=== PATIENT | female | born 1980 | race Caucasian/White ===

== ENCOUNTER 2016-11-29 07:11 | Emergency (ER) | payer SELFPAY ==
[2016-11-29 07:32] VITALS: BP 117/86
--- NOTE | 2016-11-29 07:57 | UC ---
Lower Extremity/Ankle HPI - HPI Summary HPI Summary: PT WAS WALKING ON FLAT GROUND IN HER APARTMENT WHEN HER LEFT ANKLE GAVE OUT AND ROLLED. (INVERSION INJURY). PT REPORTS A H/O A WEAK LEFT ANKLE AFTER BREAKING IT YEARS AGO AND SHE STATES IT ROLLS PERIODICALLY BUT USUALLY GETS BETTER AFTER A COUPLE OF DAYS. THIS TIME THE PAIN AND SWELLING HAVE PERSISTED AND SHE FEELS IT IS GETTING WORSE. - History of Current Complaint Chief Complaint: UCLowerExtremity Stated Complaint: ANKLE INJURY Time Seen by Provider: 11/29/16 07:48 Hx Obtained From: Patient Hx Last Menstrual Period: 11/29/16 Onset/Duration: Sudden Onset, Lasting Weeks, Still Present Severity Initially: Moderate Severity Currently: Moderate Pain Intensity: 4 Pain Scale Used: 0-10 Numeric Aggravating Factor(s): Standing, Ambulation Alleviating Factor(s): Rest Able to Bear Weight: Yes - WITH PAIN - Allergies/Home Medications Allergies/Adverse Reactions: Allergies Allergy/AdvReac Type Severity Reaction Status Date / Time No Known Allergies Allergy Verified 11/29/16 07:27 PMH/Surg Hx/FS Hx/Imm Hx Previously Healthy: Yes - Surgical History Surgical History: Yes Surgery Procedure, Year, and Place: tubal ligation - Family History Known Family History: Negative: Hypertension - Social History Alcohol Use: None Substance Use Type: None Smoking Status (MU): Heavy Every Day Tobacco Smoker Amount Used/How Often: 1 PPD Review of Systems Constitutional: Negative Skin: Negative Respiratory: Negative Cardiovascular: Negative Gastrointestinal: Negative Musculoskeletal: Arthralgia, Decreased ROM, Edema All Other Systems Reviewed And Are Negative: Yes Physical Exam Triage Information Reviewed: Yes Appearance: Well-Appearing, No Pain Distress, Well-Nourished Vital Signs: Initial Vital Signs Temp 98 F 11/29/16 07:27 Pulse 96 11/29/16 07:27 Resp 16 11/29/16 07:27 BP 117/86 11/29/16 07:27 Pulse Ox 95 11/29/16 07:27 Vital Signs Reviewed: Yes Eyes: Positive: Conjunctiva Clear ENT: Positive: Hearing grossly normal Neck: Positive: Supple Respiratory: Positive: No respiratory distress, No accessory muscle use Cardiovascular: Positive: Pulses Normal Abdomen Description: Positive: Soft Musculoskeletal: Positive: ROM Limited @ - LEFT ANKLE, Edema @ - LEFT ANKLE - LATERALLY, Other: - TTP LEFT ANKLE LATERALLY. ACHILLES INTACT. Neurological: Positive: Alert Psychological: Positive: Age Appropriate Behavior Skin: Negative: rashes Diagnostics - Radiology LEFT ANKLE/FOOT XRAYS Xray Interpretation: No Acute Changes Radiology Interpretation Completed By: Radiologist Lower Extremity Course/Dx - Differential Dx/Diagnosis Provider Diagnoses: LEFT ANKLE SPRAIN Discharge - Discharge Plan Condition: Stable Disposition: HOME Patient Education Materials: Ankle Sprain (ED) Referrals: Hay Mae MD [Medical Doctor] - 1 Week Additional Instructions: NOTHING ACUTE SEEN ON XRAY TODAY. WEAR THE CAMBOOT AND/OR TOMÁS WRAPS NEEDED FOR COMFORT. REST, ELEVATE. FOLLOW-UP WITH ORTHO IF NOT IMPROVING OVER THE NEXT 1-2 WEEKS.
--- NOTE | 2016-11-29 08:30 | RAD ---
HISTORY: Subcutaneous trauma, lateral ankle and foot pain, left-sided COMPARISONS: None VIEWS: 6, Frontal, lateral, and oblique views of the left ankle and of the left foot FINDINGS: BONE DENSITY: Normal. BONES: There is no acute displaced fracture. There is well corticated bone fragment along the distal aspect of the medial tibia consistent with remote avulsion injury. JOINTS: There is no arthropathy. ALIGNMENT: There is no dislocation. SOFT TISSUES: Unremarkable. OTHER FINDINGS: None. IMPRESSION: FINDINGS SUGGESTIVE OF REMOTE AVULSION INJURY OF THE MEDIAL MALLEOLUS. NO ACUTE OSSEOUS INJURY TO THE LEFT ANKLE OR LEFT FOOT. IF SYMPTOMS PERSIST, RECOMMEND REPEAT IMAGING.
== END 2016-11-29 08:50 | disposition home or self-care (01) ==
LOC: UCEAST 07:11
DX: S93.402A Sprain of unspecified ligament of left ankle, initial encounter (principal); F17.210 Nicotine dependence, cigarettes, uncomplicated; Z98.51 Tubal ligation status; X50.9XXA Other and unspecified overexertion or strenuous movements or postures, initial encounter; Y93.01 Activity, walking, marching and hiking; Y92.9 Unspecified place or not applicable
CPT/HCPCS: 99213; G0463

== ENCOUNTER 2017-01-17 19:22 | Emergency (ER) | payer MEDICAID ==
[2017-01-17 19:33] VITALS: BP 122/87
--- NOTE | 2017-01-17 20:00 | UC ---
Respiratory Complaint HPI - HPI Summary HPI Summary: Pt c/o cough, SOB, generalized malaise X 3 days. Pt states cough is worse when she lies down. Denies history of PE or clotting disorder - History of Current Complaint Chief Complaint: UCRespiratory Stated Complaint: COUGH Time Seen by Provider: 01/17/17 19:40 Hx Obtained From: Patient Hx Last Menstrual Period: 12/22/16 ?: No Onset/Duration: Gradual Onset, Lasting Days, Still Present, Worse Since - onset Timing: Constant Severity Initially: Mild Severity Currently: Mild Character: Cough: Nonproductive Aggravating Factors: Deep Breaths, Recumbent Position Alleviating Factors: Nothing Associated Signs And Symptoms: Positive: Wheezing, URI, Nasal Congestion - Risk Factors Pulmonary Embolism Risk Factors: Smoking Cardiac Risk Factors: Smoking Tuberculosis Risk Factors: Smoking - Allergies/Home Medications Allergies/Adverse Reactions: Allergies Allergy/AdvReac Type Severity Reaction Status Date / Time No Known Allergies Allergy Verified 01/17/17 19:33 PMH/Surg Hx/FS Hx/Imm Hx Previously Healthy: Yes - Surgical History Surgical History: None Surgery Procedure, Year, and Place: tubal ligation - Family History Known Family History: Positive: Cardiac Disease Negative: Hypertension - Social History Lives: With Family Alcohol Use: None Substance Use Type: None Smoking Status (MU): Heavy Every Day Tobacco Smoker Amount Used/How Often: 1 PPD Have You Smoked in the Last Year: Yes Household Exposure Type: Cigarettes - Immunization History Vaccination Up to Date: No Review of Systems Constitutional: Fatigue Skin: Negative Eyes: Negative ENT: Other - nasal congestion Respiratory: Shortness Of Breath, Cough Cardiovascular: Negative Gastrointestinal: Negative Genitourinary: Negative Motor: Negative Neurovascular: Negative Musculoskeletal: Negative Neurological: Negative Psychological: Negative Is Patient Immunocompromised?: No All Other Systems Reviewed And Are Negative: Yes Physical Exam Triage Information Reviewed: Yes Appearance: Ill-Appearing Vital Signs: Initial Vital Signs Temp 96.7 F 01/17/17 19:30 Pulse 99 01/17/17 19:30 Resp 18 01/17/17 19:30 BP 122/87 01/17/17 19:30 Pulse Ox 99 01/17/17 19:30 Vital Signs Reviewed: Yes Eye Exam: Normal ENT Exam: Other ENT: Positive: Nasal congestion Dental Exam: Normal Neck exam: Normal Respiratory Exam: Other Respiratory: Positive: Wheezing Cardiovascular Exam: Normal Musculoskeletal Exam: Normal Neurological Exam: Normal Psychological Exam: Normal Skin Exam: Normal UC Diagnostic Evaluation - Laboratory O2 Sat by Pulse Oximetry: 99 Respiratory Course/Dx - Differential Dx/Diagnosis Differential Diagnosis/HQI/PQRI: Bronchitis, Other - viral syndrome Provider Diagnoses: bronchitis Discharge - Discharge Plan Condition: Stable Disposition: HOME Prescriptions: Albuterol HFA INHALER* [Ventolin HFA Inhaler*] 1 puff INH Q6H PRN #1 mdi PRN Reason: Sob/Wheezing Amoxicillin PO (*) [Amoxicillin 875 MG (*)] 875 mg PO Q12H #14 tab Benzonatate CAP* [Tessalon 100 MG CAP*] 100 mg PO Q8H PRN #21 cap PRN Reason: Cough Patient Education Materials: Acute Bronchitis (ED) Referrals: [facility] [place] [facility] [Outside] No Primary Care Phys,NOPCP [Primary Care Provider] -
== END 2017-01-17 20:12 | disposition home or self-care (01) ==
LOC: UCCORT 19:22
DX: J40 Bronchitis, not specified as acute or chronic (principal); F17.210 Nicotine dependence, cigarettes, uncomplicated
CPT/HCPCS: 99212; G0463

== ENCOUNTER 2017-01-24 12:52 | Emergency (ER) | payer MEDICAID ==
[2017-01-24 13:14] VITALS: BP 126/85
--- NOTE | 2017-01-24 14:08 | UC ---
Respiratory Complaint HPI - HPI Summary HPI Summary: Cough and congestion for about 9 days. She is currently on amoxicillin and inhaler. She is not feeling any better and continues to have cough and congestion. She has frontal headache. No fever. Cough is somewhat productive. - History of Current Complaint Chief Complaint: UCRespiratory Stated Complaint: UPPER RESPITORY Time Seen by Provider: 01/24/17 13:55 Hx Obtained From: Patient Hx Last Menstrual Period: 01/22/17 Onset/Duration: Gradual Onset, Lasting Days Timing: Constant Severity Initially: Moderate Severity Currently: Moderate Character: Cough: Nonproductive Aggravating Factors: Deep Breaths, Recumbent Position Alleviating Factors: Upright Position Associated Signs And Symptoms: Positive: URI, Nasal Congestion. Negative: Dyspnea, Fever, Chills, Pleuritic Chest Pain, Hemoptysis, Calf Pain, Calf Swelling, Edema - Allergies/Home Medications Allergies/Adverse Reactions: Allergies Allergy/AdvReac Type Severity Reaction Status Date / Time Bee Venom Allergy Hives/Diff. Verified 01/24/17 13:14 Breathing/I tching PMH/Surg Hx/FS Hx/Imm Hx Previously Healthy: No - smoker. - Surgical History Surgical History: Yes Surgery Procedure, Year, and Place: tubal ligation - Family History Known Family History: Positive: Cardiac Disease Negative: Hypertension - Social History Alcohol Use: Occasionally Substance Use Type: None Smoking Status (MU): Heavy Every Day Tobacco Smoker Amount Used/How Often: 1 PPD Have You Smoked in the Last Year: Yes Household Exposure Type: Cigarettes - Immunization History Vaccination Up to Date: No Review of Systems ENT: Sinus Congestion Respiratory: Cough All Other Systems Reviewed And Are Negative: Yes Physical Exam Triage Information Reviewed: Yes Appearance: Well-Appearing, No Pain Distress, Well-Nourished Vital Signs: Initial Vital Signs Temp 98.6 F 01/24/17 13:10 Pulse 82 01/24/17 13:10 Resp 16 01/24/17 13:10 BP 126/85 01/24/17 13:10 Pulse Ox 100 01/24/17 13:10 Vital Signs Reviewed: Yes Eyes: Positive: Conjunctiva Clear ENT: Positive: Pharynx normal, Nasal congestion, TMs normal, Sinus tenderness - Frontal sinus tenderness.. Negative: Pharyngeal erythema, Tonsillar swelling, Tonsillar exudate, Trismus, Muffled voice, Hoarse voice Neck: Positive: Supple, Nontender, No Lymphadenopathy Respiratory: Positive: Normal breath sounds, No respiratory distress, No accessory muscle use. Negative: Respiratory distress, Decreased breath sounds, Crackles, Rhonchi, Stridor Cardiovascular: Positive: RRR, No Murmur, Pulses Normal Abdomen Description: Positive: Nontender. Negative: Distended, Guarding Musculoskeletal Exam: Normal Musculoskeletal: Positive: Strength Intact, ROM Intact, No Edema Neurological: Positive: Alert, Muscle Tone Normal. Negative: Fatigued Psychological: Positive: Normal Response To Family Skin: Negative: rashes UC Diagnostic Evaluation - Laboratory O2 Sat by Pulse Oximetry: 100 Respiratory Course/Dx - Course Course Of Treatment: she will continue her amoxicillin for the frontal sinus infection/tenderness. Her cough is benign without any change in vitals or clinical signs of pnuemonia. - Differential Dx/Diagnosis Provider Diagnoses: sinusitis. uri Discharge - Discharge Plan Condition: Good Disposition: HOME Patient Education Materials: Upper Respiratory Infection (ED) Referrals: Melissa Morton PA [Primary Care Provider] - If Needed Additional Instructions: Add mucinex decongestant and also nasal irrigation to your regimen.
== END 2017-01-24 14:30 | disposition home or self-care (01) ==
LOC: UCCORT 12:52
DX: J32.9 Chronic sinusitis, unspecified (principal); J06.9 Acute upper respiratory infection, unspecified; Z72.0 Tobacco use; Z72.89 Other problems related to lifestyle
CPT/HCPCS: 99211; G0463

== ENCOUNTER 2017-08-05 19:33 | Emergency (ER) | payer MEDICAID ==
[2017-08-05 19:48] VITALS: BP 133/88
[2017-08-05] MEDS ORDERED: Diazepam INJ (NF) 5 MG/ML 10 ML VIAL (50 MG TOTAL) IM ONE (19:55)
--- NOTE | 2017-08-05 19:58 | ED ---
Back Pain - HPI Summary HPI Summary: Complains of sudden onset lower back pain while at work. Back pain described as constant, sharp, right side worse than left. History of same pain once before. 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 Denies trauma, incontinence, urinary retention, radiation into bilateral lower extremities, loss of sensation in bilateral lower extremities. Patient ambulatory, with pain. Medical history is none. Positive smoker. Occasional etoh, denies IV drug use. - History of Current Complaint Chief Complaint: UCBackPain Stated Complaint: BACK SPASMS Time Seen by Provider: 08/05/17 19:37 Hx Last Menstrual Period: july Onset/Duration: Sudden Onset Onset/Duration: Started Minutes Ago Timing: Constant Back Pain Location: Is Discrete @ - lowe back bilat Severity Initially: Severe Severity Currently: Severe Pain Intensity: 9 Pain Scale Used: 0-10 Numeric Character: Sharp Aggravating Symptom(s): Movement, Bending Alleviating Symptom(s): Position Associated Signs And Symptoms: Positive: Negative - Allergies/Home Medications Allergies/Adverse Reactions: Allergies Allergy/AdvReac Type Severity Reaction Status Date / Time Penicillins AdvReac yeast Verified 08/05/17 19:50 infection bee stings Allergy Difficulty Uncoded 08/05/17 19:50 Breathing, hives Home Medications: Home Medications Albuterol HFA INHALER* [Ventolin HFA Inhaler*] 2 puff INH Q6H PRN 08/05/17 [ History Confirmed 08/05/17] PMH/Surg Hx/FS Hx/Imm Hx Endocrine/Hematology History: Denies: Hx Anticoagulant Therapy History: Denies: Hx Dialysis EENT History: Reports: Hx Deafness Neurological History: Denies: Hx CVA - Surgical History Surgery Procedure, Year, and Place: tubal ligation Infectious Disease History: No Infectious Disease History: Denies: History Other Infectious Disease, Traveled Outside the [place] in Last 30 Days - Family History Known Family History: Positive: Cardiac Disease Negative: Hypertension - Social History Alcohol Use: Occasionally Substance Use Type: Reports: None Smoking Status (MU): Heavy Every Day Tobacco Smoker Amount Used/How Often: 1 PPD Have You Smoked in the Last Year: Yes Review of Systems Constitutional: Negative Eyes: Negative Positive: Epistaxis Cardiovascular: Negative Respiratory: Negative Gastrointestinal: Negative Genitourinary: Negative Positive: Other Skin: Negative Neurological: Negative Psychological: Normal Positive: Anxious All Other Systems Reviewed And Are Negative: Yes Physical Exam - Summary Physical Exam Summary: Patient ambulatory. PMS intact on bilateral lower extremities. Low back pain with flexion of bilateral hips and knees. No masses, erythema, deformity, ecchymosis, extra warmth noted to lower back. Tenderness to palpation along lumbar paraspinal muscles, right more than left. Triage Information Reviewed: Yes Vital Signs On Initial Exam: Initial Vitals Temp Pulse Resp BP Pulse Ox 98.2 F 120 20 133/88 100 08/05/17 19:41 08/05/17 19:41 08/05/17 19:41 08/05/17 19:41 08/05/17 19:41 Vital Signs Reviewed: Yes Appearance: Positive: Well-Appearing Skin: Positive: Warm Head/Face: Positive: Normal Head/Face Inspection Eyes: Positive: EOMI, Conjunctiva Clear Neck: Positive: Supple Respiratory/Lung Sounds: Positive: Clear to Auscultation Cardiovascular: Positive: Normal Abdomen Description: Positive: Nontender Musculoskeletal: Positive: Normal Neurological: Positive: Normal Psychiatric: Positive: Normal AVPU Assessment: Alert - [place] Coma Scale Best Eye Response: 4 - Spontaneous Best Motor Response: 6 - Obeys Commands Best Verbal Response: 5 - Oriented Coma Scale Total: 15 Diagnostics - Vital Signs Vital Signs Temp Pulse Resp BP Pulse Ox 08/05/17 19:41 98.2 F 120 20 133/88 100 - Laboratory Lab Statement: Any lab studies that have been ordered have been reviewed, and results considered in the medical decision making process. Re-Evaluation - Re-Evaluation 1 Re-Evaluation Time: 20:48 Comment: pt back pain completely resolved with valium. Back Pain Course/Dx - Course Course Of Treatment: Complains of sudden onset lower back pain while at work. Back pain described as constant, sharp, right side worse than left. History of same pain once before years ago. 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 Denies trauma, incontinence, urinary retention, radiation into bilateral lower extremities, loss of sensation in bilateral lower extremities. Patient ambulatory with pain. Medical history is none. Denies IV drug use. Patient ambulatory. PMS intact on bilateral lower extremities. Low back pain with flexion of bilateral hips and knees. No masses, erythema, deformity, ecchymosis , extra warmth noted to lower back. Tenderness to palpation along lumbar paraspinal muscles, right more than left. VS wnl. Pt pain completely resolved with valium. Rx for same - Diagnoses Provider Diagnoses: Muscle spasm Discharge - Sign-Out/Discharge Documenting (check all that apply): Discharge/Admit/Transfer - Discharge Plan Condition: Stable Disposition: HOME Prescriptions: Diazepam TAB(*) [Valium TAB(*)] 5 mg PO TID PRN #5 tab MDD 3 tabs PRN Reason: Pain Patient Education Materials: Muscle Spasm (ED) Forms: *Work Release Referrals: Melissa Morton PA [Primary Care Provider] - Additional Instructions: Follow-up with primary care. Return to the ED for any new or worsening symptoms - Billing Disposition and Condition Condition: STABLE Disposition: Home
[2017-08-05] MEDS ORDERED: Ketorolac INJ* 30 MG/ML 1 ML VIAL IM ONE (20:40)
== END 2017-08-05 21:03 | disposition home or self-care (01) ==
LOC: UCCORT 19:33
DX: M62.830 Muscle spasm of back (principal); Z88.0 Allergy status to penicillin; F17.210 Nicotine dependence, cigarettes, uncomplicated
CPT/HCPCS: 96372; 99212; G0463; J1885; J3360

== ENCOUNTER 2018-01-14 16:36 | Emergency (ER) | payer SELFPAY ==
[2018-01-14 16:45] VITALS: BP 130/86
--- NOTE | 2018-01-14 16:46 | UC ---
Skin Complaint HPI - HPI Summary HPI Summary: 37 female presents with lump under left axilla for 2 weeks. She tells me that she has had this multiple times in the past and her boyfriend will always stick a needle in it and drain some pus and it goes away. This time pt was unable to express any pus and is becoming more tender. Denies fever or chills. No hx of MRSA that she knows of. - History of Current Complaint Chief Complaint: UCSkin Time Seen by Provider: 01/14/18 16:46 Stated Complaint: CYST OR BOIL UNDERNEATH ARM Hx Obtained From: Patient Hx Last Menstrual Period: 01/14/18 Onset/Duration: Gradual Onset Onset Severity: Moderate Current Severity: Severe Pain Intensity: 9 Pain Scale Used: 0-10 Numeric - Allergy/Home Medications Allergies/Adverse Reactions: Allergies Allergy/AdvReac Type Severity Reaction Status Date / Time Penicillins AdvReac yeast Verified 01/14/18 16:45 infection bee stings Allergy Difficulty Uncoded 01/14/18 16:45 Breathing, hives PMH/Surg Hx/FS Hx/Imm Hx Respiratory History: Asthma Other History Of: Negative For: Anticoagulant Therapy - Surgical History Surgical History: Yes Surgery Procedure, Year, and Place: tubal ligation - Family History Known Family History: Positive: Cardiac Disease Negative: Hypertension - Social History Occupation: Employed Full-time Lives: With Family Alcohol Use: Occasionally Substance Use Type: None Smoking Status (MU): Heavy Every Day Tobacco Smoker Amount Used/How Often: 1 PPD Have You Smoked in the Last Year: Yes Household Exposure Type: Cigarettes - Immunization History Vaccination Up to Date: No Review of Systems All Other Systems Reviewed And Are Negative: Yes Constitutional: Positive: Negative Skin: Positive: Other - Left axilla abscess Respiratory: Positive: Negative Cardiovascular: Positive: Negative Neurovascular: Positive: Negative Neurological: Positive: Negative Psychological: Positive: Negative Physical Exam - Summary Physical Exam Summary: GENERAL: NAD. WDWN. No pain distress. SKIN: LEFT AXILLA: 1.0cm abscess TTP. Mild induration and edema. NECK: Supple. Nontender. No lymphadenopathy. CHEST: No accessory muscle use. Breathing comfortably and in no distress. CV: Pulses intact. Cap refill <2seconds NEURO: Alert. PSYCH: Age appropriate behavior. Triage Information Reviewed: Yes Vital Signs: Initial Vital Signs Temp 97.0 F 01/14/18 16:42 Pulse 100 01/14/18 16:42 Resp 18 01/14/18 16:42 BP 130/86 01/14/18 16:42 Pulse Ox 100 01/14/18 16:42 Vital Signs Reviewed: Yes Procedures - Incision and Drainage Left Axilla Anesthesia: Local Instrument(s): Scalpel - 311 Course/Dx - Course Course Of Treatment: The procedure was explained to the pt and all questions were answered. A time out was performed, witnessed, and signed. The area was cleansed with an alcohol pad. 1mL of 2% lidocaine without epi was administered and good anesthetization was achieved. The central most part of the abscess was incised with a #11 blade aprox 3mm. Mild purulent matter was able to be expressed. A culture was obtained. The wound was bandaged with telfa . Pt tolerated procedure well. Will place her on keflex and await culture results. - Diagnoses Provider Diagnosis: Abscess of left axilla Discharge - Sign-Out/Discharge Documenting (check all that apply): Patient Departure All imaging exams completed and their final reports reviewed: No Studies - Discharge Plan Condition: Stable Disposition: HOME Prescriptions: Cephalexin CAP* [Keflex CAP*] 500 mg PO BID #14 cap Patient Education Materials: Abscess (ED) Referrals: Melissa Morton PA [Primary Care Provider] - Additional Instructions: If you develop a fever, shortness of breath, chest pain, new or worsening symptoms - please call your PCP or go to the ED. Your blood pressure was high at todays visit. Please see your primary provider within 4 weeks for recheck and re-evaluation. Keep the area covered with a band-aid until well healed - Billing Disposition and Condition Condition: STABLE Disposition: Home
[2018-01-14] MEDS ORDERED: Lidocaine 2% PF * 5 ML VIAL INJ ONE (16:51)
--- NOTE | 2018-01-17 15:22 | UC ---
- Progress Note Progress Note: Wound culture comes back from January 16, 2018 as positive for STAPHLOCOCCUS LUGDENENSIS AND PROPIONBACTERIUM SPECIES. Nursing to call patient to determine if they are improved or not. Patient is on Keflex. If the patient is not improving we need to add clindamycin as a prescription and nursing to the call microbiology laboratory to ask for susceptibilities of the bacteria. Course/Dx - Diagnoses Provider Diagnoses: Abscess of left axilla Discharge - Sign-Out/Discharge Documenting (check all that apply): Patient Departure All imaging exams completed and their final reports reviewed: No Studies - Discharge Plan Condition: Stable Disposition: HOME Prescriptions: Cephalexin CAP* [Keflex CAP*] 500 mg PO BID #14 cap Patient Education Materials: Abscess (ED) Referrals: Melissa Morton PA [Primary Care Provider] - Additional Instructions: If you develop a fever, shortness of breath, chest pain, new or worsening symptoms - please call your PCP or go to the ED. Your blood pressure was high at todays visit. Please see your primary provider within 4 weeks for recheck and re-evaluation. Keep the area covered with a band-aid until well healed - Billing Disposition and Condition Condition: STABLE Disposition: Home
== END 2018-01-14 17:20 | disposition home or self-care (01) ==
LOC: UCEAST 16:36
DX: Z88.0 Allergy status to penicillin (principal); F17.210 Nicotine dependence, cigarettes, uncomplicated; L02.412 Cutaneous abscess of left axilla
CPT/HCPCS: 10060; 87070; 87205; 87640; 87641; 99212; G0463